=== PATIENT | female | born 1970 | race American Indian/Alaskan Native ===

== ENCOUNTER 2018-10-04 18:16 | Emergency (ER) | payer BC ==
[2018-10-04 18:16] VITALS: BMI 47.8
[2018-10-04] MEDS ORDERED: Sodium Chloride 0.9% 1,000 ML IV ONE (19:13)
--- NOTE | 2018-10-04 19:13 | C.PDOC ---
History Of Present Illness The patient presents to the ED for evaluation of right-sided flank pain which has been occurring in intermittent episodes since this summer. Patient states the pain initially woke her from sleep when it started and states that it occ asionally radiates to her right lower back region. She has been evaluated by her PMD, Dr. Sinha, in the past and referred to the ED for further evaluation. Patient denies fever, chills, nausea, vomiting, or any urinary complaints at this time. Time Seen by Provider: 10/04/18 19:13 Chief Complaint (Nursing): Abdominal Pain History Per: Patient History/Exam Limitations: no limitations Onset/Duration Of Symptoms: Intermittent Episodes Current Symptoms Are (Timing): Still Present Context: Other (unknown ) Severity: Mild Pain Scale Rating Of: 2 Radiation Of Pain To:: Flank (right) Quality Of Discomfort: Sharp, "Pain" Associated Symptoms: Back Pain. denies: Fever, Chills, Nausea, Vomiting, Urinar y Symptoms Exacerbating Factors: None Alleviating Factors: None Last Bowel Movement: Today Recent travel outside of the [place]: No Additional History Per: Patient Abnormal Vaginal Bleeding: No Last Menstral Period: current Past Medical History Reviewed: Historical Data, Nursing Documentation, Vital Signs Vital Signs: Last Vital Signs Temp 98.1 F 10/04/18 18:28 Pulse 110 H 10/04/18 18:28 Resp 20 10/04/18 18:28 BP 159/105 H 10/04/18 18:28 Pulse Ox 96 10/04/18 18:28 - Medical History PMH: Diabetes Denies: Depression, Chronic Kidney Disease Surgical History: Denies: Appendectomy, Cholecystectomy Family History: States: Unknown Family Hx - Social History Hx Tobacco Use: Yes Hx Alcohol Use: Yes (occasionally/social) Hx Substance Use: No Review Of Systems Constitutional: Negative for: Fever, Chills Cardiovascular: Negative for: Chest Pain, Palpitations Respiratory: Negative for: Cough, Shortness of Breath Gastrointestinal: Negative for: Nausea, Vomiting, Abdominal Pain Genitourinary: Negative for: Dysuria, Frequency, Hematuria Musculoskeletal: Positive for: Other (right-sided flank pain ) Skin: Negative for: Rash, Lesions, Jaundice, Bruising Neurological: Negative for: Weakness, Numbness Physical Exam - Physical Exam Appears: Non-toxic, No Acute Distress, Other (morbidly obese ) Skin: Warm, Dry Head: Normacephalic Oral Mucosa: Moist Neck: Supple Gastrointestinal/Abdominal: Soft, Tenderness (right lower quadrant ), No Guarding, No Rebound Extremity: Normal ROM Neurological/Psych: Oriented x3 ED Course And Treatment - Laboratory Results Result Diagrams: 10/04/18 19:28 10/04/18 19:28 O2 Sat by Pulse Oximetry: 96 (on RA) Pulse Ox Interpretation: Normal - CT Scan/US CT Abd/Pel Other Rad Studies (CT/US): Read By Radiologist, Radiology Report Reviewed CT/US Interpretation: Findings: Chest: The visualized lung bases are clear. Abdomen: The liver, spleen, pancreas, gallbladder, and adrenal glands are unremarkable. There is delay enhancement of the right kidney. There is moderately severe right-sided hydronephrosis caused by 9 mm obstructing stone in the proximal right ureter. The left kidney otherwise appears unremarkable. The aorta is within normal limits. There is no evidence of abdominal lymphadenopathy or ascites. There is a small umbilical hernia containing only omental fat. Pelvis: The bowel is unremarkable, with no obstructive or inflammatory changes. The urinary bladder is within normal limits. The other pelvic structures appear grossly intact. There is no evidence of pelvic lymphadenopathy or ascites. Bones: There are no suspicious osseous abnormalities seen. The appendix is normal. There is a small osseous irregularity demonstrated in the posterior aspect of the right inferior pubic ramus. Impression: 1. Moderately severe right-sided hydronephrosis caused by 9 mm obstructing stone in the proximal ri ght ureter. Delay enhancement of the right kidney is also appreciated. 2. No obstructive or inflammatory bowel changes. The appendix is normal. 3. Small umbilical hernia containing only omental fat. 4. Small bony irregularity in the posterior aspect of the right inferior pubic ramus, which is of uncertain clinical significance. Follow-up is recommended as clinically indicated. Progress Note: Bloodwork and urinalysis ordered and reviewed. IV Fluids given. Reevaluation Time: 21:50 Reassessment Condition: Improved Disposition Counseled Patient/Family Regarding: Studies Performed, Diagnosis, Need For Followup, Rx Given - Disposition Referrals: Angel Sinha MD [Staff Provider] - Disposition: HOME/ ROUTINE Disposition Time: 19:13 Condition: FAIR Additional Instructions: Please return if symptoms recur and will need to follow up with a urologist Prescriptions: Naproxen [Naprosyn] 1 tab PO BID PRN #25 tab PRN Reason: Pain Instructions: Renal Colic (DC), Kidney Stones (DC), Hydronephrosis, Adult (DC) Forms: [employer] (Vietnamese) - Clinical Impression Clinical Impression: Renal colic on right side, Kidney stone on right side, Hydronephrosis, Abdominal pain - Scribe Statement The provider has reviewed the documentation as recorded by the Scribe (Xiomy Pope) Provider Attestation: All medical record entries made by the Scribe were at my direction and personally dictated by me. I have reviewed the chart and agree that the record accurately reflects my personal performance of the history, physical exam, medical decision making, and the department course for this patient. I have also personally directed, reviewed, and agree with the discharge instructions and disposition.
[2018-10-04 19:32] LABS: BASO # 0.1 K/uL (0.0-0.2); BASO % 0.8 % (0.0-2.0); EOS # 0.2 K/uL (0.0-0.7); EOS % 1.8 % (0.0-4.0); HEMOGLOBIN 15.3 g/dL (11.0-16.0); LYMPH # 3.6 K/uL (1.0-4.3); LYMPH % 36.9 % (20.0-40.0); MEAN CELL VOLUME 92.4 fL (81.0-99.0); MEAN CORPUSCULAR HGB CONC 33.6 g/dL (33.0-37.0); MEAN PLATELET VOLUME 8.2 fL (7.2-11.7); MONO # 0.7 K/uL (0.0-0.8); MONO % 7.7 % (0.0-10.0); NEUT # 5.1 K/uL (1.8-7.0); NEUT % 52.8 % (50.0-75.0); RBC 4.95 Mil/uL (3.80-5.20); RED CELL DISTRIBUTION WIDTH 13.8 % (11.5-14.5); WHITE BLOOD COUNT 9.7 K/uL (4.8-10.8)
[2018-10-04 19:34] LABS: HCG,QUALITATIVE URINE NEGATIVE (NEGATIVE)
[2018-10-04] MEDS ORDERED: Sodium Chloride 0.9% 1,000 ML ONE (19:38)
[2018-10-04 19:41] LABS: SQUAMOUS EPITHIAL 15 /hpf (0-5); URINE BACTERIA MOD (<OCC); URINE BILIRUBIN NEGATIVE (NEGATIVE); URINE BLOOD 3+ (NEGATIVE); URINE CLARITY Hazy (Clear); URINE COLOR Red (YELLOW); URINE GLUCOSE (UA) 1+ mg/dL (Normal); URINE LEUKOCYTE ESTERASE TRACE Leu/uL (Negative); URINE PROTEIN 2+ mg/dL (NEGATIVE); URINE UROBILINOGEN NORMAL mg/dL (0.2-1.0)
[2018-10-04 19:46] LABS: ALB/GLOB RATIO 1.5 (1.0-2.1); ALT/SGPT 23 U/L (9-52); AST/SGOT 14 U/L (14-36); BLOOD UREA NITROGEN 15 mg/dL (7-17); CALCIUM 9.5 mg/dl (8.6-10.4); GFR NON-AFRICAN AMERICAN 60; LIPASE 116 U/L (23-300)
[2018-10-04 20:01] LABS: VENOUS BLOOD GAS BASE EXCESS 0.8 mmol/L (0.0-2.0); VENOUS BLOOD GAS PCO2 43 mmHg (40-60); VENOUS BLOOD GAS PO2 38 mm/Hg (30-55); VENOUS BLOOD PH 7.39 (7.32-7.43)
[2018-10-04] MEDS ORDERED: Iodixanol 320 MG/ML 100 ML BOTTLE IV ONE (20:13)
[2018-10-04 22:13] VITALS: BP 159/91; PULSE 86; RESP 14; TEMP 97.6; O2SAT 99
--- NOTE | 2018-10-05 09:14 | CT ---
CT abdomen and pelvis HISTORY: Right flank pain. COMPARISON: None available. TECHNIQUE: Multiple contiguous axial images were performed through the abdomen and pelvis with the use of intravenous contrast. Subsequently, sagittal coronal reformatted images were obtained. This CT exam was performed using one or more of the following dose reduction techniques: Automated exposure control, adjustment of the mA and/or kV according to patient size, and/or use of iterative reconstruction technique. Findings Lung bases are clear. No pleural or pericardial effusion. Liver and gallbladder are preserved Spleen is preserved. Adrenal glands are preserved. Pancreas is preserved. Upper abdominal bowel is preserved. Right kidney: Moderate right hydroureteronephrosis with 1 centimeter calculus seen within the proximal right ureter. Delayed enhancement of the right kidney is also appreciated for which underlying superimposed acute pyelonephritis cannot entirely be excluded. Clinical correlation. Left Kidney: 1.5 centimeter upper pole hypoechoic cyst demonstrating a Hounsfield unit attenuation of 9 suggestive for a cyst. Additional punctate upper to midpole 4 millimeter hypodensity, too small to adequately characterize. Urinary bladder is preserved. Heterogeneous uterus and bilateral adnexa. Fecal retention in the colon. Under distended descending colon. Appendix is visualized and within limits. Few shotty para-aortic and inguinal lymph nodes. Few shotty mesenteric lymph nodes. Small fat containing umbilical hernia Degenerative changes in the spine and bilateral hips. Bony productive change noted at the level of the right ischial tuberosity which may represent a chronic hamstring tendon origin injury. Clinical correlation. Impression: Moderate right hydroureteronephrosis with 1 centimeter calculus seen within the proximal right ureter. Delayed enhancement of the right kidney is also appreciated for which underlying superimposed acute pyelonephritis cannot entirely be excluded. Clinical correlation. Additional findings as above. A preliminary report was generated at 9:44 p.m. on 10/04/[address] Raj Nicolas from [employer]
== END 2018-10-04 22:13 | disposition home or self-care (01) ==
LOC: C.ER 18:16
DX: N20.0 Calculus of kidney (principal); N13.30 Unspecified hydronephrosis; R10.31 Right lower quadrant pain; N23 Unspecified renal colic; E11.9 Type 2 diabetes mellitus without complications; Z72.0 Tobacco use
CPT/HCPCS: 74177; 80053; 81001; 82009; 82803; 83690; 84703; 85025; 96360; 99284; J7030; Q9967

== ENCOUNTER 2018-10-08 09:40 | Day surgery (SDC) | payer BC ==
[2018-10-07 11:46] VITALS: BMI 44.9
[2018-10-08] MEDS ORDERED: Oxycodone/Acetaminophen 5/325 mg Tab PO PRN (15:20)
[2018-10-08] MEDS ORDERED: Midazolam 2 MG/2 ML VIAL ONE (15:23)
[2018-10-08] MEDS ORDERED: Propofol 10 mg/ml Inj (20 ML) ONE (15:23)
[2018-10-08] MEDS ORDERED: Gentamicin 80 mg in 0.9% NS 80 MG/100 ML BAG IVPB SCH (15:30)
[2018-10-08] MEDS ORDERED: Iohexol 240 (50 ml) ONE (15:30)
[2018-10-08] MEDS ORDERED: Lidocaine 2% Jelly (Uro-Jet) ONE (15:30)
[2018-10-08] MEDS ORDERED: cefTRIAXone 1 gm 1 GM/100 ML BAG IVPB ONE (15:30)
[2018-10-08] MEDS ORDERED: HYDROmorphone 0.5 mg/0.5 ml ISec ONE (17:02)
[2018-10-08] MEDS ORDERED: HYDROmorphone 0.5 mg/0.5 ml ISec IVP PRN (17:11)
--- NOTE | 2018-10-08 17:26 | RAD ---
Date of service: 10/08/2018 HISTORY: URETERAL STONE/RT HYDRONEPHROSIS COMPARISON: 10/04/2018 CT abdomen and pelvis. Summary of findings on the comparison examination: Moderate right hydroureteronephrosis with 1 cm calculus seen within the proximal right ureter. FINDINGS: BOWEL: Normal. No obstruction. No free air. BONES: Normal. OTHER FINDINGS: 9.8 mm calculus adjacent to the transverse process L4 vertebral body on the right IMPRESSION: Confirmation of right ureteral calculus 9.8 mm.
[2018-10-08 17:32] VITALS: TEMP 98
--- NOTE | 2018-10-08 17:33 | RAD ---
Date of service: 10/08/2018 PROCEDURE: Intraoperative Fluoroscopy. HISTORY: RIGHT URETERAL STONE/HYDRONEPHROSIS FINDINGS: Fluoroscopic assistance was provided for cystogram retrograde and right stent placement. Please refer to the operative report from CARLOS Benoit, , MD [employer]. Total fluoroscopic time (continuous mode) utilized during the procedure 6.2 seconds. Dose report: DLP [id number] (mGy/m2)
[2018-10-08 17:39] VITALS: BP 159/93; PULSE 93; RESP 18; O2SAT 100
--- NOTE | 2018-10-09 06:55 | CARD ---
APPROVED REPORT Date of service: 10/08/2018 EKG Measurement Heart [id number] <Conclusion> Normal sinus rhythm Normal ECG
--- NOTE | 2018-10-21 04:12 | OP ---
PROCEDURE DATE: 10/08/2018 UROLOGY OPERATIVE NOTE PREOPERATIVE DIAGNOSES: Urolithiasis, hematuria, hydronephrosis, severe renal colic, and stone disease. POSTOPERATIVE DIAGNOSES: Urolithiasis, hematuria, hydronephrosis, severe renal colic, and stone disease. PROCEDURES: Examination under anesthesia, cystoscopy, right retrograde pyelogram, right ureteroscopy, right laser lithotripsy, insertion of a right double-J stent with no dangles. COMPLICATIONS: There were no complications. BLOOD LOSS: 10 mL. FINDINGS: 1. Normal bladder mucosa. 2. Ureteral orifice identified. 3. Stone identified. 4. Kidney identified with hydronephrosis. 5. At the termination of procedure, the patient has almost no stones left that visualized under direct vision and/or KUB and at the termination of the procedure, the patient has a good working indwelling double-J stent. INDICATIONS: See history and physical for the details. She is a very pleasant lady with a stone, with pain, which is not resolving, not migrating, proximal to distally, and is here now for the above-listed procedures. I discussed risks, benefits, and alternatives. I discussed cystoscopy, stent, and then ESWL. I discussed right ESWL. We discussed ureteroscopy and laser lithotripsy. After discussing all of the options, the patient is here now for the above-listed procedures. DESCRIPTION OF PROCEDURE: After obtaining informed consent, the patient was placed on the operating table. Routine monitors were placed. Time-out was called to confirm the patient and positioning. Antibiotic prophylaxis. Venodyne boots were placed. We introduced cystoscope via urethra. The bladder mucosa was identified and within normal limits. Ureteral orifices were identified. The retrograde pyelogram was performed identifying the stone and the outline. At this point, we put a wire up to the kidney. I explained to the patient that we are going to do our best, but also careful. The wire went up easily. I introduced the ureteroscope. We graduated the ureteroscope, semi-rigid. We get up to the stone. We relatively easily used a second wire to navigate through the ureteral orifice. I then worked up the way to the kidney. Now, the stone picture was taken. The entire procedure was done with fluoroscopic imaging and also with the camera, so I can see exactly where and then my clothing sales assistant can see as well. We connected the [employer]. We were injecting. We see the stone and we provided laser energy. We used 365 fibers. We provided energy at about 2.5 joules with about 3 to 5 MHz in frequency. We just kept lasering the stone. procedure, I should mention of course everybody in the room has their glasses on. The patient particularly is covered. She is covered well. The entire procedure is continued. We broke the stone till it looks like there is almost nothing left. It did not really migrate too much proximally. We are able to ollie it all the way up as much as we needed to. When bluntly broke the stone, and we have broken it into many pieces. We, at this point, put a double-J stent and we confirmed positioning with fluoroscopic criteria. We emptied the bladder. The patient tolerated without complication. Given the fact that we did all these ureteral work, I did not feel comfortable to leave a stent with a dangle, so we left the stent with no dangles. Dry sterile dressing was applied. The patient tolerated the procedure without complications. The plan will be for outpatient management. We will do a followup KUB and then make further recommendations and plans. Siva Payne MD
--- NOTE | 2018-10-21 07:48 | HP ---
This is a urology relatively emergency admission. REASON FOR ADMISSION: Treatment of a kidney stone. HISTORY OF PRESENT ILLNESS: The patient is a very pleasant lady I just met. I just met the patient with a kidney stone. At that time, we discussed options. Now, she is here and we discussed options and location for treatment. We discussed cysto, stent insertion and ESWL. We discussed right ESWL. We are actually bringing her in for an emergency cystourethroscopy, laser lithotripsy. We are going to try at least to put a stent in, but also laser the stone as much as we can. A lot of this has to do with the patient's schedule and we are trying to do as much as we possibly can for a period. I also explained to her the risks, benefits, treatment alternatives. See the plans listed below. We are going to plan to proceed. She has been having on and off renal colic, but it is not improving and the stone has not migrated distally. By evidence, she still has hydronephrosis and pain. She is being brought in as an emergency. PAST MEDICAL AND SURGICAL HISTORY: Listed on the chart. No history of an NC or CVA. SOCIAL HISTORY: She works in the [employer] now. Otherwise unremarkable. No history of an NC or CVA. REVIEW OF SYSTEMS: Listed above. Otherwise noncontributory. No NC, CVA, weight loss, chest pain, shortness of breath, or the like. MEDICATIONS: See chart. ALLERGIES: SEE CHART. PHYSICAL EXAMINATION: GENERAL: A well-nourished female, in no apparent distress. VITAL SIGNS: Within normal limits and included in the chart. LUNGS: Clear. HEART: Normal S1 and S2. ABDOMEN: Overall, soft and nontender. No flank mass appreciated. PELVIC: As I mentioned now, there were no pelvic or rectal masses are determined or seen. LABORATORY DATA: See chart. CT noted. DIAGNOSES: Urolithiasis, hematuria, severe renal colic, hydronephrosis. ASSESSMENT AND PLAN: In summary, she is very pleasant. The plans are as follows. I discussed the options with the patient. I discussed shockwave lithotripsy. I discussed cystoscopy, ureteroscopy, laser lithotripsy. I discussed stent insertion then as well. We have discussed various options with the patient. We are going to try today that at least insert a stent and then also plan for ureteroscopy and laser lithotripsy. I explained the risks, benefits, and alternatives. We discussed the increased morbidity and risks without a pre-stent situation, but also discussed that we will do everything under control gently. After explaining all these risks, we are going to plan to proceed. The plan is as follows: 1. Antibiotic prophylaxis. 2. Cystoscopy. 3. Stent insertion. 4. Possible ureteroscopy and laser lithotripsy to see what we find. ADDENDUM: See the operative note. We actually did ureteral dilation, ureteroscopy, laser lithotripsy. We actually made good progress. See the operative note. Towards breaking the stone, we will see what the final product looks, but it appears that the stone is broken very nicely. See the operative note. Siva Payne MD
== END 2018-10-08 18:04 | disposition home or self-care (01) ==
LOC: C.SDS 09:40
PROVIDERS: ATTEND Urology
DX: N20.0 Calculus of kidney (principal); N13.2 Hydronephrosis with renal and ureteral calculous obstruction
CPT/HCPCS: 52356; 74018; 82948; 84703; 93005; C1725; C1758; C1769; J0696; J1170; J1580

== ENCOUNTER 2018-10-15 16:16 | Emergency (ER) | payer BC ==
[2018-10-15 16:17] VITALS: BMI 44.9
[2018-10-15 16:24] VITALS: BP 152/102; PULSE 113; TEMP 97.8; O2SAT 100
--- NOTE | 2018-10-15 17:28 | C.PDOC ---
History Of Present Illness 48 year old female with a history of diabetes and kidney stones is sent into the ED by Dr. Payne for an x-ray. Patient states that she wasn't feeling well last night. She reports generalized abdominal pain, but states that she felt better after having a bowel movement. She denies fever, chills, nausea, vomiting, dysuria, or hematuria. Time Seen by Provider: 10/15/18 16:21 Chief Complaint (Nursing): Back Pain History Per: Patient History/Exam Limitations: no limitations Onset/Duration Of Symptoms: Days (1) Current Symptoms Are (Timing): Still Present Quality Of Discomfort: "Pain" Associated Symptoms: denies: Incontinence, New Weakness, New Numbness Past Medical History Reviewed: Historical Data, Nursing Documentation, Vital Signs Vital Signs: Last Vital Signs Temp 97.8 F 10/15/18 16:20 Pulse 113 H 10/15/18 16:20 Resp 18 10/15/18 16:20 BP 152/102 H 10/15/18 16:20 Pulse Ox 100 10/15/18 16:20 - Medical History PMH: Diabetes, Kidney Stones, Chronic Kidney Disease Surgical History: Family History: States: No Known Family Hx - Social History Hx Tobacco Use: Yes Hx Alcohol Use: Yes Hx Substance Use: No - Immunization History Hx Tetanus Toxoid Vaccination: No Hx Influenza Vaccination: No Hx Pneumococcal Vaccination: No Review Of Systems Except As Marked, All Systems Reviewed And Found Negative. Constitutional: Negative for: Fever, Chills Gastrointestinal: Positive for: Abdominal Pain Physical Exam - Physical Exam Appears: Well, Non-toxic, No Acute Distress, Other (obese) Skin: Normal Color, Warm, Dry Head: Atraumatic, Normacephalic Eye(s): bilateral: Normal Inspection, PERRL, EOMI Chest: Symmetrical, No Tenderness Cardiovascular: Rhythm Regular, No Murmur Respiratory: Normal Breath Sounds, No Rales, No Rhonchi, No Wheezing Gastrointestinal/Abdominal: Soft, No Tenderness, No Guarding, No Rebound Back: No CVA Tenderness Neurological/Psych: Oriented x3, Normal Speech, Normal Cognition ED Course And Treatment O2 Sat by Pulse Oximetry: 100 (RA) Pulse Ox Interpretation: Normal Medical Decision Making Medical Decision Making: Plan: XR Abdomen w/ Obliques POC Urine Spoke to Dr. Siva Payne at 18:52, discussed the XR results with him and he instructed to discharge the patient. Patient informed regarding phone call with Dr. Payne, instructed to call and make an appointment with him. Disposition Discussed With : Kerry Comment: Will f/u w/pt in his office Doctor Will See Patient In The: Office Counseled Patient/Family Regarding: Studies Performed, Diagnosis, Need For Followup - Disposition Referrals: Hay Payne MD [Staff Provider] - Disposition: HOME/ ROUTINE Disposition Time: 18:56 Condition: GOOD Instructions: Constipation, Adult (DC), Kidney Stones (DC) Forms: [employer] (Malay) - POA Present On Arrival: None - Clinical Impression Clinical Impression: Kidney stone on right side, Constipation, Abdominal pain - Scribe Statement The provider has reviewed the documentation as recorded by the Scribe (Brennon Coon) Provider Attestation: All medical record entries made by the Scribe were at my direction and personally dictated by me. I have reviewed the chart and agree that the record accurately reflects my personal performance of the history, physical exam, medical decision making, and the department course for this patient. I have also personally directed, reviewed, and agree with the discharge instructions and disposition.
--- NOTE | 2018-10-15 18:46 | RAD ---
Date of service: 10/15/2018 HISTORY: eval ureteral stent COMPARISON: Abdominal radiograph performed 10/08/18 FINDINGS: BOWEL: Moderate to severe diffuse constipation. BONES: Degenerative changes. OTHER FINDINGS: Right ureteral stent. Approximately 7 mm calcification noted along the proximal 3rd aspect of the ureteral stent. IMPRESSION: Right ureteral stent. Approximately 7 mm calcification noted along the proximal 3rd aspect of the ureteral stent. Moderate to severe diffuse constipation.
[2018-10-15 19:08] VITALS: RESP 20
== END 2018-10-15 19:07 | disposition home or self-care (01) ==
LOC: C.ER 16:16
DX: N20.0 Calculus of kidney (principal); K59.00 Constipation, unspecified; R10.84 Generalized abdominal pain; E11.9 Type 2 diabetes mellitus without complications; Z72.0 Tobacco use